=== PATIENT | female | born 1945 | race Caucasian/White ===

== ENCOUNTER 2016-10-08 10:41 | Inpatient (IN) | payer OTHER ==
[~2016-10-08] VITALS: Ht 160 cm; Wt 100.7 kg
[~2016-10-08 10:41] MED LIST: AMLODIPINE BESY10 MG PO; ASPIRIN81 M2 PO; BUPROBAN150 MG PO; CALCIUM + D3 E1 EACH PO; CINNAMON PLUS1 EACH PO; DAILY VITAMIN1 EAC4 PO; FLUOXETINE HCL20 MG PO; GARLIC1000 MG PO; GLIPIZIDE XL10 MG PO; GLIPIZIDE10 MG PO; JANUMET 50/51 TABLET PO; JANUMET XR 50-1 EAC1 PO; KRILL OIL 1,001 EACH PO; LEVOTHYROXINE125 MCG PO; LOPID600 MG PO; LORAZEPAM0.5 MG PO; LOTREL PO; PRAVACHOL40 MG PO; TRULICITY1.5 MG/0.5 SC; TYLENOL PM1 CAPLET PO; VICTOZA 2-0.6 MG/0.1 SC; VISION PLUS LU1 EACH PO; VITAMIN B122500 MCG PO; VITAMIN E400 UNIT PO; [UNRECOGNIZED DRUG - OTHER] PO; [UNRECOGNIZED DRUG - OTHER] SC
[2016-10-08 12:26] LABS: HEMATOCRIT 30.6 % (36.0-46.0); MCH 28.8 PG (29.0-34.0); MCHC 32.4 G/DL (30.0-36.0); MEAN PLAT.VOLUME 9.6 uM^3 (9.5-12.4); PLATELET COUNT 439 K/uL (156-360); RBC DIS.WIDTH-CV 13.3 % (11.8-14.6); RBC DIS.WIDTH-SD 43.1 % (39-53); RED BLOOD COUNT 3.44 M/uL (3.80-5.20); WHITE BLOOD COUNT 9.1 K/uL (4.1-10.2)
[2016-10-08 12:32] LABS: INTER. NORMALIZED RATIO 1.2; PROTHROMBIN TIME 12.8 SEC (10.2-12.9)
[2016-10-08 12:35] LABS: PTT 29.4 SEC (25-37)
[2016-10-08 12:38] LABS: CHLORIDE 107 mEq/L (99-109); POTASSIUM 5.3 mEq/L (3.7-5.4); SODIUM 140 mEq/L (136-147)
[2016-10-08 12:40] LABS: GLUCOSE 54 mg/dL (70-99)
[2016-10-08 12:41] LABS: ANION GAP 14 MEQ/L (2-14)
[2016-10-08 12:44] LABS: GFR ESTIMATE (CALCULATED) 21 mL/min/; UREA NITROGEN (BUN) 39 mg/dL (9-23)
[2016-10-08 13:55] LABS: TYPE OF FLUID PARACENTESIS
[2016-10-08 14:47] LABS: BODY FLUID EOSINOPHILS 0 % (0-25); BODY FLUID RBC'S 2000 /MM^3 (0-100); BODY FLUID WBC'S 1641 /MM^3 (0-500); MONONUCLEAR WBC'S 95 %; POLYNUCLEAR WBC'S 5 % (0-25)
[2016-10-08 15:23] LABS: BODY FLUID LDH 2542 IU/L; BODY FLUID PROTEIN 5.1 G/DL
[2016-10-08] MEDS ORDERED: WELLBUTRIN XL150 MG PO (16:02)
[2016-10-08] MEDS ORDERED: JANUMET 50/11 TABLET PO (16:03)
[2016-10-08] MEDS ORDERED: LEVOTHYROXINE112 MCG PO (16:04)
[2016-10-08 17:26] LABS: TOTAL BILIRUBIN 0.2 mg/dL (0.0-1.0)
[2016-10-08 17:28] LABS: ALKALINE PHOSPHATASE 58 IU/L (3-129)
[2016-10-08 17:30] LABS: DIRECT BILIRUBIN 0.1 mg/dL (0.0-0.3)
[2016-10-08 17:35] LABS: TROP-I INTERPRETATION NEGATIVE; TROPONIN-I 0.01 ng/mL (0.0-0.30)
[2016-10-08 17:53] LABS: C-REACTIVE PROTEIN 19.8 MG/L (0-10)
[2016-10-08 21:00] VITALS: BP 109/69
[2016-10-08] MEDS ORDERED: ATIVAN0.5 MG PO (21:13)
[2016-10-08 23:38] VITALS: BP 96/67
[2016-10-09 04:00] VITALS: BP 103/66
[2016-10-09 06:29] LABS: HEMATOCRIT 29.4 % (36.0-46.0); MCH 30.6 PG (29.0-34.0); MCV 89.9 FL (83-99); PLATELET COUNT 404 K/uL (156-360); RBC DIS.WIDTH-CV 13.4 % (11.8-14.6); RBC DIS.WIDTH-SD 44.1 % (39-53); RED BLOOD COUNT 3.27 M/uL (3.80-5.20); WHITE BLOOD COUNT 7.6 K/uL (4.1-10.2)
[2016-10-09 07:00] LABS: ALKALINE PHOSPHATASE 46 IU/L (3-129); ANION GAP 11 MEQ/L (2-14); CHLORIDE 109 MEQ/L (99-109); GFR ESTIMATE (CALCULATED) 28 mL/min/; GLUCOSE 78 mg/dL (70-99); IRON 41 MCG/DL (35-150); POTASSIUM 5.1 MEQ/L (3.7-5.4); SAMPLE HEMOLYSIS CHECK 0; SAMPLE ICTERIC CHECK 0; SAMPLE LIPEMIA CHECK 0; SODIUM 141 MEQ/L (136-147); TOTAL BILIRUBIN 0.2 MG/DL (0.0-1.0); UREA NITROGEN (BUN) 33 mg/dL (9-23)
[2016-10-09 07:01] LABS: TROP-I INTERPRETATION NEGATIVE; TROPONIN-I 0.02 ng/mL (0.0-0.30)
[2016-10-09 07:26] LABS: UR CREATININE CONCENTRATION 76.2 MG/DL
[2016-10-09 07:59] LABS: FERRITIN 107 NG/ML (10-291)
[2016-10-09 08:00] VITALS: BP 123/60
[2016-10-09 08:57] LABS: POINT-OF-CARE METER ID UU13113717
[2016-10-09 11:08] VITALS: BP 128/66
[2016-10-09 12:09] LABS: POINT-OF-CARE METER ID UU13113717
[2016-10-09 17:19] VITALS: BP 116/66
[2016-10-09 19:44] VITALS: BP 126/61
[2016-10-09 23:24] VITALS: BP 109/66
[2016-10-10 03:54] VITALS: BP 110/64
[2016-10-10 06:11] LABS: EOSINOPHIL (%) 3.9 % (0-5); EOSINOPHIL COUNT 0.2 K/uL (0-0.3); HEMATOCRIT 26.1 % (36.0-46.0); IMMATURE GRANULOCYTE (%) 0.3 % (0.0-0.7); INSTRUMENT ABS NEUTROPHIL CT 3.7 K/uL; LYMPHOCYTE COUNT 1.1 K/uL (1.0-2.8); MCH 29.2 PG (29.0-34.0); MCHC 32.6 G/DL (30.0-36.0); MCV 89.7 FL (83-99); MEAN PLAT.VOLUME 9.8 uM^3 (9.5-12.4); MONOCYTE COUNT 0.8 K/uL (0-0.8); NEUTROPHIL (%) 63.5 % (45-76); NEUTROPHIL COUNT 3.7 K/uL (1.8-6.4); PLATELET COUNT 315 K/uL (156-360); RBC DIS.WIDTH-CV 13.2 % (11.8-14.6); RBC DIS.WIDTH-SD 43.1 % (39-53); RED BLOOD COUNT 2.91 M/uL (3.80-5.20); WHITE BLOOD COUNT 5.8 K/uL (4.1-10.2)
[2016-10-10 06:42] LABS: ALKALINE PHOSPHATASE 37 IU/L (3-129); ANION GAP 8 MEQ/L (2-14); CHLORIDE 110 MEQ/L (99-109); GFR ESTIMATE (CALCULATED) 37 mL/min/; GLUCOSE 91 mg/dL (70-99); MAGNESIUM 1.5 mg/dl (1.3-2.7); POTASSIUM 4.7 MEQ/L (3.7-5.4); SAMPLE HEMOLYSIS CHECK 0; SAMPLE ICTERIC CHECK 0; SAMPLE LIPEMIA CHECK 0; SODIUM 138 MEQ/L (136-147); TOTAL BILIRUBIN 0.2 MG/DL (0.0-1.0); UREA NITROGEN (BUN) 24 mg/dL (9-23); URIC ACID 8.4 mg/dL (3.1-9.2)
[2016-10-10 08:15] VITALS: BP 92/52
[2016-10-10 08:52] LABS: POINT-OF-CARE METER ID UU14174225
[2016-10-10 12:23] LABS: HBSG INDEX 0.15; HPCA INDEX 0.17
[2016-10-10 12:24] LABS: ANTI-HEPATITIS A VIRUS (IGM) Nonreactive; HAV INDEX 0.29
[2016-10-10 12:25] LABS: ANTI-HEPATITIS B CORE (IGM) Nonreactive; HBC IgM INDEX 0.06
[2016-10-10] MEDS ORDERED: ZOFRAN4 MG PO (14:29)
[2016-10-10] MEDS ORDERED: PANTOPRAZOLE SO40 MG PO (14:29)
[2016-10-10] MEDS ORDERED: JANUVIA25 M1 PO (14:29)
[2016-10-10] MEDS ORDERED: LOPRESSOR25 MG PO (14:29)
[2016-10-10 15:49] VITALS: BP 100/68
[2016-10-11 16:07] LABS: JO-1 ANTIBODY 12 U/mL (0-99); SM (SMITH) ANTIBODY 115 U/mL (0-99); SS-A (SJOGREN'S) ANTIBODY 7 U/mL (0-99); SS-B (SJOGREN'S) ANTIBODY 8 U/mL (0-99)
== END 2016-10-10 16:40 | disposition home or self-care (01) | DRG 374 ==
LOC: EME 10:41 → EDOF 15:25 → ENRESERV 15:37 → 5SOUTH 20:48
PROVIDERS: Emergency Medicine; Internal Medicine
PROC: 0W9G3ZZ Drainage of Peritoneal Cavity, Percutaneous Approach (ICD-10-PCS; principal; 2016-10-09)
DX: C78.6 Secondary malignant neoplasm of retroperitoneum and peritoneum (principal); R18.0 Malignant ascites; C80.1 Malignant (primary) neoplasm, unspecified; K76.7 Hepatorenal syndrome; N17.9 Acute kidney failure, unspecified; K74.60 Unspecified cirrhosis of liver; D64.9 Anemia, unspecified; D75.89 Other specified diseases of blood and blood-forming organs; E11.649 Type 2 diabetes mellitus with hypoglycemia without coma; E03.9 Hypothyroidism, unspecified; I12.9 Hypertensive chronic kidney disease with stage 1 through stage 4 chronic kidney disease, or unspecified chronic kidney disease; E11.22 Type 2 diabetes mellitus with diabetic chronic kidney disease; N18.2 Chronic kidney disease, stage 2 (mild); E78.1 Pure hyperglyceridemia; E78.5 Hyperlipidemia, unspecified; F32.9 Major depressive disorder, single episode, unspecified; F41.9 Anxiety disorder, unspecified; K21.9 Gastro-esophageal reflux disease without esophagitis; E66.01 Morbid (severe) obesity due to excess calories; Z87.891 Personal history of nicotine dependence; Z68.39 Body mass index [BMI] 39.0-39.9, adult
CPT/HCPCS: 36415; 49083; 71020; 76770; 80048; 80053; 80069; 80074; 80076; 82140; 82272; 82436; 82570; 82728; 82945; 82948; 83540; 83615 91; 83735; 84100; 84156; 84157; 84300; 84466; 84484; 84550; 85025; 85027; 85610; 85730; 86038; 86140; 87040; 87070; 87075; 87116; 87205; 87206; 88108; 88305; 88341 TC; 88342 TC; 89051; 93005; 99281; 99285; J0696; J1644; J1815; J7030; J7050; J7120; P9047

== ENCOUNTER → 2016-10-21 | Outpatient (CLI) | payer OTHER ==
[~2016-10-21] MED LIST changes: +ATIVAN0.5 MG PO; +JANUMET 50/11 TABLET PO; +JANUVIA25 M1 PO; +LEVOTHYROXINE112 MCG PO; +LOPRESSOR25 MG PO; +PANTOPRAZOLE SO40 MG PO; +WELLBUTRIN XL150 MG PO; +ZOFRAN4 MG PO
== END | disposition home or self-care (01) ==
LOC: RAD 13:30
PROC: 0W9G3ZZ Drainage of Peritoneal Cavity, Percutaneous Approach (ICD-10-PCS; principal; 2016-10-21)
DX: R18.8 Other ascites (principal)
CPT/HCPCS: 49083

== ENCOUNTER → 2016-10-29 | Outpatient (CLI) | payer OTHER ==
[~2016-10-29] VITALS: Ht 160 cm; Wt 102.1 kg
[2016-10-29 09:02] LABS: POINT-OF-CARE METER ID UU14174212
== END | disposition home or self-care (01) ==
LOC: OPR 07:34 → EDSTATUS 09:00 → OPR 09:00
PROVIDERS: Internal Medicine Hematology & Oncology
DX: R18.8 Other ascites (principal); C78.6 Secondary malignant neoplasm of retroperitoneum and peritoneum; D68.51 Activated protein C resistance; R06.02 Shortness of breath
CPT/HCPCS: 77012; 82948; 88305; 88341 TC; 88342 TC; J3010

== ENCOUNTER → 2016-11-10 | Outpatient (CLI) | payer OTHER | END | disposition home or self-care (01) | LOC: RAD 10-15 08:15 | PROC: 0W9G3ZZ Drainage of Peritoneal Cavity, Percutaneous Approach (ICD-10-PCS; principal; 2016-11-10) | DX: R18.8 Other ascites (principal) | CPT/HCPCS: 49083 ==

== ENCOUNTER 2016-11-20 08:15 | Inpatient (IN) | payer OTHER ==
[~2016-11-20] VITALS: Ht 152.4 cm; Wt 108.9 kg
[~2016-11-20 08:15] MED LIST changes: -ASPIRIN81 M2 PO; +LO-DOSE ASPIRIN81 M2 PO
[2016-11-20 09:13] LABS: HEMATOCRIT 31.6 % (36.0-46.0); MCH 27.7 PG (29.0-34.0); MCV 86.8 FL (83-99); MEAN PLAT.VOLUME 9.2 uM^3 (9.5-12.4); PLATELET COUNT 558 K/uL (156-360); RBC DIS.WIDTH-CV 14.9 % (11.8-14.6); RBC DIS.WIDTH-SD 47.5 % (39-53); RED BLOOD COUNT 3.64 M/uL (3.80-5.20); WHITE BLOOD COUNT 10.5 K/uL (4.1-10.2)
[2016-11-20 09:19] LABS: INTER. NORMALIZED RATIO 1.2; PROTHROMBIN TIME 13.6 SEC (10.2-12.9)
[2016-11-20 09:21] LABS: PTT 26.1 SEC (25-37)
[2016-11-20 09:24] LABS: CHLORIDE 107 mEq/L (99-109); SODIUM 135 mEq/L (136-147)
[2016-11-20 09:28] LABS: TOTAL BILIRUBIN 0.2 mg/dL (0.0-1.0)
[2016-11-20 09:34] LABS: TROP-I INTERPRETATION NEGATIVE; TROPONIN-I < 0.01 ng/mL (0.0-0.30)
[2016-11-20 09:36] LABS: POTASSIUM 6.1 mEq/L (3.7-5.4)
[2016-11-20 09:50] LABS: GLUCOSE 163 mg/dL (70-99)
[2016-11-20 09:51] LABS: ANION GAP 10 MEQ/L (2-14)
[2016-11-20 09:53] LABS: ALKALINE PHOSPHATASE 55 IU/L (3-129)
[2016-11-20 09:54] LABS: GFR ESTIMATE (CALCULATED) 18 mL/min/
[2016-11-20 09:55] LABS: UREA NITROGEN (BUN) 45 mg/dL (9-23)
[2016-11-20 09:57] LABS: LIPASE 36 U/L (1.0-51.0)
[2016-11-20 10:46] LABS: TYPE OF FLUID PERITONEAL
[2016-11-20 11:39] LABS: BODY FLUID EOSINOPHILS 0 % (0-25); BODY FLUID RBC'S 2000 /MM^3 (0-100); BODY FLUID WBC'S 1282 /MM^3 (0-500); MONONUCLEAR WBC'S 100 %; POLYNUCLEAR WBC'S 0 % (0-25)
[2016-11-20] MEDS ORDERED: LORAZEPAM0.5 MG PO (14:08)
[2016-11-20 16:00] VITALS: BP 83/63
[2016-11-20 17:52] LABS: POINT-OF-CARE METER ID UU13113717
[2016-11-20 18:33] LABS: ANION GAP 10 MEQ/L (2-14); CHLORIDE 105 MEQ/L (99-109); GFR ESTIMATE (CALCULATED) 22 mL/min/; POTASSIUM 5.1 MEQ/L (3.7-5.4); SAMPLE HEMOLYSIS CHECK 0; SAMPLE ICTERIC CHECK 0; SAMPLE LIPEMIA CHECK 0; SODIUM 134 MEQ/L (136-147); UREA NITROGEN (BUN) 41 mg/dL (9-23)
[2016-11-20 18:56] LABS: GLUCOSE 113 mg/dL (70-99)
[2016-11-20 19:25] VITALS: BP 91/49
[2016-11-20 23:50] VITALS: BP 83/47
[2016-11-21 03:26] VITALS: BP 86/48
[2016-11-21 05:55] VITALS: BP 105/65
[2016-11-21 06:46] LABS: HEMATOCRIT 27.1 % (36.0-46.0); MCH 28.9 PG (29.0-34.0); MCHC 32.5 G/DL (30.0-36.0); MCV 89.1 FL (83-99); MEAN PLAT.VOLUME 9.4 uM^3 (9.5-12.4); PLATELET COUNT 410 K/uL (156-360); RBC DIS.WIDTH-CV 15.3 % (11.8-14.6); RBC DIS.WIDTH-SD 49.6 % (39-53); RED BLOOD COUNT 3.04 M/uL (3.80-5.20); WHITE BLOOD COUNT 7.5 K/uL (4.1-10.2)
[2016-11-21 07:10] LABS: ANION GAP 7 MEQ/L (2-14); CHLORIDE 111 MEQ/L (99-109); GFR ESTIMATE (CALCULATED) 26 mL/min/; GLUCOSE 98 mg/dL (70-99); POTASSIUM 5.1 MEQ/L (3.7-5.4); SAMPLE HEMOLYSIS CHECK 0; SAMPLE ICTERIC CHECK 0; SAMPLE LIPEMIA CHECK 0; SODIUM 137 MEQ/L (136-147); UREA NITROGEN (BUN) 40 mg/dL (9-23); URIC ACID 9.3 mg/dL (3.1-9.2)
[2016-11-21 07:35] VITALS: BP 109/67
[2016-11-21 11:27] VITALS: BP 101/68
[2016-11-21 14:10] LABS: IRON 20 MCG/DL (35-150)
[2016-11-21 17:41] LABS: POINT-OF-CARE METER ID UU14188625
[2016-11-21 18:26] LABS: UR CREATININE CONCENTRATION 270.7 MG/DL
[2016-11-21 19:48] VITALS: BP 116/77
[2016-11-22 04:00] VITALS: BP 98/54
[2016-11-22 06:29] LABS: HEMATOCRIT 27.8 % (36.0-46.0); MCH 27.7 PG (29.0-34.0); MCHC 31.3 G/DL (30.0-36.0); MCV 88.5 FL (83-99); MEAN PLAT.VOLUME 9.5 uM^3 (9.5-12.4); PLATELET COUNT 420 K/uL (156-360); RED BLOOD COUNT 3.14 M/uL (3.80-5.20); WHITE BLOOD COUNT 7.8 K/uL (4.1-10.2)
[2016-11-22 06:55] LABS: ANION GAP 10 MEQ/L (2-14); CHLORIDE 108 MEQ/L (99-109); GFR ESTIMATE (CALCULATED) 24 mL/min/; GLUCOSE 112 mg/dL (70-99); POTASSIUM 5.1 MEQ/L (3.7-5.4); SAMPLE HEMOLYSIS CHECK 0; SAMPLE ICTERIC CHECK 0; SAMPLE LIPEMIA CHECK 0; SODIUM 135 MEQ/L (136-147); UREA NITROGEN (BUN) 40 mg/dL (9-23)
[2016-11-22 07:12] VITALS: BP 95/54
[2016-11-22 12:57] VITALS: BP 95/52
[2016-11-22 16:02] VITALS: BP 85/49
[2016-11-22 18:53] VITALS: BP 95/54
[2016-11-22 20:18] VITALS: BP 93/50
[2016-11-22 21:32] LABS: POINT-OF-CARE METER ID UU14188625
[2016-11-22 23:29] LABS: ADD MIUA? YES; BILIRUBIN NEGATIVE; BLOOD NEGATIVE; COLOR YELLOW ((YELLOW)); GLUCOSE (STRIP) NEGATIVE; KETONES NEGATIVE; LEUKOCYTES TRACE; NITRITE NEGATIVE; PROTEIN (STRIP) NEGATIVE; SPECIFIC GRAVITY 1.014 (1.000-1.030); UROBILINOGEN 0.2 MG/DL (0.2-1.0)
[2016-11-22 23:37] LABS: BACTERIA NONE SEEN /HPF; EPITHELIAL CELLS RARE /HPF; MUCUS TRACE /LPF; RED BLOOD CELLS 0-5 /HPF (0-5); WHITE BLOOD CELLS 0-5 /HPF (0-5)
[2016-11-23] VITALS: BP 85/54
[2016-11-23 03:55] VITALS: BP 88/57
[2016-11-23 06:44] LABS: ANION GAP 10 MEQ/L (2-14); CHLORIDE 108 MEQ/L (99-109); GFR ESTIMATE (CALCULATED) 30 mL/min/; GLUCOSE 95 mg/dL (70-99); POTASSIUM 4.6 MEQ/L (3.7-5.4); SAMPLE HEMOLYSIS CHECK 0; SAMPLE ICTERIC CHECK 0; SAMPLE LIPEMIA CHECK 0; SODIUM 136 MEQ/L (136-147); UREA NITROGEN (BUN) 33 mg/dL (9-23)
[2016-11-23 07:12] VITALS: BP 93/58
[2016-11-23 08:18] LABS: POINT-OF-CARE METER ID UU13113717
[2016-11-23 09:47] LABS: HEMATOCRIT 27.2 % (36.0-46.0); MCHC 30.9 G/DL (30.0-36.0); MCV 90.7 FL (83-99); MEAN PLAT.VOLUME 9.8 uM^3 (9.5-12.4); PLATELET COUNT 349 K/uL (156-360); RBC DIS.WIDTH-CV 14.9 % (11.8-14.6); RBC DIS.WIDTH-SD 49.3 % (39-53); WHITE BLOOD COUNT 6.7 K/uL (4.1-10.2)
[2016-11-23 11:45] VITALS: BP 106/61
[2016-11-23] MEDS ORDERED: MIDODRINE HCL5 MG PO (12:10)
[2016-11-23] MEDS ORDERED: NABI650T PO (12:10)
[2016-11-23] MEDS ORDERED: FERROUS SULFAT325 MG PO (12:10)
[2016-11-23 15:32] VITALS: BP 157/67
== END 2016-11-23 16:09 | disposition home health service (06) | DRG 374 ==
LOC: EME 08:15 → 5SOUTH 13:22 → EDOF 13:22 → ENRESERV 13:23 → EDOF 13:43 → 5SOUTH 15:35
PROVIDERS: Anesthesiology; Emergency Medicine; Family Medicine; Hospitalist; Internal Medicine Nephrology
PROC: 0W9G30Z Drainage of Peritoneal Cavity with Drainage Device, Percutaneous Approach (ICD-10-PCS; principal; 2016-11-20)
PROC: 0W9G30Z Drainage of Peritoneal Cavity with Drainage Device, Percutaneous Approach (ICD-10-PCS; 2016-11-22)
DX: C78.6 Secondary malignant neoplasm of retroperitoneum and peritoneum (principal); R18.0 Malignant ascites; N17.0 Acute kidney failure with tubular necrosis; E87.5 Hyperkalemia; I95.9 Hypotension, unspecified; E86.0 Dehydration; I12.9 Hypertensive chronic kidney disease with stage 1 through stage 4 chronic kidney disease, or unspecified chronic kidney disease; N18.4 Chronic kidney disease, stage 4 (severe); E11.22 Type 2 diabetes mellitus with diabetic chronic kidney disease; C56.9 Malignant neoplasm of unspecified ovary; E78.5 Hyperlipidemia, unspecified; K74.60 Unspecified cirrhosis of liver; K21.9 Gastro-esophageal reflux disease without esophagitis; D50.9 Iron deficiency anemia, unspecified; E03.9 Hypothyroidism, unspecified; F32.9 Major depressive disorder, single episode, unspecified; E66.01 Morbid (severe) obesity due to excess calories; Z68.42 Body mass index [BMI] 45.0-49.9, adult; Z87.891 Personal history of nicotine dependence; Z87.442 Personal history of urinary calculi; Z86.718 Personal history of other venous thrombosis and embolism; Z82.49 Family history of ischemic heart disease and other diseases of the circulatory system
CPT/HCPCS: 49083; 71020; 76770; 80048 91; 80053; 80069; 81003; 82533 91; 82570; 82607; 82746; 82948; 83540; 83605; 83690; 84132 91; 84156; 84466; 84484; 84550; 85027; 85610; 85730; 87040; 87070; 87075; 87205; 89051; 93005; 99281; 99285; J0696; J1644; J1815; J2405; J7030; J7040; J7050; P9047; S0028

== ENCOUNTER → 2016-11-25 | Outpatient (CLI) | payer OTHER ==
[~2016-11-25] MED LIST changes: +FERROUS SULFAT325 MG PO; +MIDODRINE HCL5 MG PO; +NABI650T PO
== END | disposition home or self-care (01) ==
LOC: RAD 08:29
PROC: 0W9G3ZZ Drainage of Peritoneal Cavity, Percutaneous Approach (ICD-10-PCS; principal; 2016-11-25)
DX: R18.8 Other ascites (principal)
CPT/HCPCS: 49083

== ENCOUNTER → 2016-12-02 | Outpatient (CLI) | payer OTHER | END | disposition home or self-care (01) | LOC: RAD 08:30 | PROC: 0W9G3ZZ Drainage of Peritoneal Cavity, Percutaneous Approach (ICD-10-PCS; principal; 2016-12-02) | DX: R18.8 Other ascites (principal) | CPT/HCPCS: 49083 ==

== ENCOUNTER → 2016-12-09 | Outpatient (CLI) | payer OTHER ==
[~2016-12-09] MED LIST changes: +BENADRYL50 MG PO; +CALCIUM 600 +1 EAC4 PO; +CLARITIN-D 21 TABLET PO; +DEXAMETHASONE4 MG PO; +HUMALOG100 UNIT/1 SC; +MULTI VITAMIN1 EACH PO; +MYCOSTATIN 100,60 ML PO; +NEULASTA6 MG/0.6 M SC; +ZANTAC150 MG PO; +ZUPLENZ4 MG PO
== END | disposition home or self-care (01) ==
LOC: RAD 08:30
PROC: 0W9G3ZZ Drainage of Peritoneal Cavity, Percutaneous Approach (ICD-10-PCS; principal; 2016-12-09)
DX: R18.8 Other ascites (principal)
CPT/HCPCS: 49083

== ENCOUNTER → 2016-12-23 | Outpatient (CLI) | payer OTHER | END | disposition home or self-care (01) | LOC: RAD 08:08 | PROC: 0W9G3ZZ Drainage of Peritoneal Cavity, Percutaneous Approach (ICD-10-PCS; principal; 2016-12-23) | DX: R18.8 Other ascites (principal) | CPT/HCPCS: 49083 ==

== ENCOUNTER → 2016-12-30 | Outpatient (CLI) | payer OTHER | END | disposition home or self-care (01) | LOC: RAD 08:22 | PROC: 0W9G3ZZ Drainage of Peritoneal Cavity, Percutaneous Approach (ICD-10-PCS; principal; 2016-12-30) | DX: R18.8 Other ascites (principal) | CPT/HCPCS: 49083 ==

== ENCOUNTER → 2017-01-05 | Outpatient (CLI) | payer OTHER | END | disposition home or self-care (01) | LOC: RAD 08:06 | PROC: 0W9G3ZZ Drainage of Peritoneal Cavity, Percutaneous Approach (ICD-10-PCS; principal; 2017-01-05) | DX: R18.8 Other ascites (principal) | CPT/HCPCS: 49083 ==

== ENCOUNTER → 2017-01-13 | Outpatient (CLI) | payer OTHER | END | disposition home or self-care (01) | LOC: RAD 08:14 | PROC: 0W9G3ZZ Drainage of Peritoneal Cavity, Percutaneous Approach (ICD-10-PCS; principal; 2017-01-13) | DX: R18.8 Other ascites (principal) | CPT/HCPCS: 49083 ==

== ENCOUNTER → 2017-01-20 | Outpatient (CLI) | payer OTHER | END | disposition home or self-care (01) | LOC: RAD 08:04 | PROC: 0W9G3ZZ Drainage of Peritoneal Cavity, Percutaneous Approach (ICD-10-PCS; principal; 2017-01-20) | DX: R18.8 Other ascites (principal) | CPT/HCPCS: 49083 ==

== ENCOUNTER → 2017-01-27 | Outpatient (CLI) | payer OTHER ==
[~2017-01-27] MED LIST changes: +PROCHLORPERAZIN10 MG PO
== END | disposition home or self-care (01) ==
LOC: RAD 08:00
PROC: 0W9G3ZZ Drainage of Peritoneal Cavity, Percutaneous Approach (ICD-10-PCS; principal; 2017-01-27)
DX: R18.8 Other ascites (principal)
CPT/HCPCS: 49083

== ENCOUNTER → 2017-02-17 | Outpatient (CLI) | payer OTHER | END | disposition home or self-care (01) | LOC: RAD 08:15 | PROC: BB4BZZZ Ultrasonography of Pleura (ICD-10-PCS; principal; 2017-02-17) | DX: R18.8 Other ascites (principal); Z53.09 Procedure and treatment not carried out because of other contraindication | CPT/HCPCS: 76705 ==

== ENCOUNTER → 2017-03-03 | Outpatient (CLI) | payer OTHER | END | disposition home or self-care (01) | LOC: RAD 02-10 08:15 | PROC: 0W9G3ZZ Drainage of Peritoneal Cavity, Percutaneous Approach (ICD-10-PCS; principal; 2017-03-03) | DX: R18.8 Other ascites (principal) | CPT/HCPCS: 49083 ==

== ENCOUNTER → 2017-07-20 | Outpatient (CLI) | payer OTHER | END | disposition home or self-care (01) | LOC: RAD 07-13 13:30 | PROC: 0WJG3ZZ Inspection of Peritoneal Cavity, Percutaneous Approach (ICD-10-PCS; principal; 2017-07-20) | DX: R18.8 Other ascites (principal); Z53.09 Procedure and treatment not carried out because of other contraindication | CPT/HCPCS: 76705 ==